=== PATIENT | female | born 1995 | race Caucasian/White ===

== ENCOUNTER 2022-08-07 08:34 | Outpatient (CLI) | payer OTHER ==
[2022-08-07] MEDS ORDERED: Magnevist 469MG/ML 20 ML VIAL ONE (11:47)
== END 2022-08-07 08:35 | disposition home or self-care (01) ==
LOC: CSHMRI 08:34
PROVIDERS: ATTEND Psychiatry & Neurology Neurology
DX: R51.9 Headache, unspecified (principal)
CPT/HCPCS: 70544; 70553